=== PATIENT | female | born 1940 | race Caucasian/White ===

== ENCOUNTER 2016-08-27 08:23 | Inpatient (IN) | payer MEDICARE ==
[~2016-08-27] VITALS: Ht 157.5 cm; Wt 76.0 kg
[2016-08-27] MEDS ORDERED: B-COTAB41 PO (11:06)
[2016-08-27] MEDS ORDERED: POLYSOL14 EACH EYE (11:06)
[2016-08-27] MEDS ORDERED: VITA100018 PO (11:06)
[2016-08-27] MEDS ORDERED: FLUTI110I INH (11:06)
[2016-08-27] MEDS ORDERED: PRIL20CA9 PO (11:06)
[2016-08-27] MEDS ORDERED: LORA1TAB12 PO (11:06)
[2016-08-27] MEDS ORDERED: META0.52 PO (11:06)
[2016-08-27] MEDS ORDERED: LATA0.002 EACH EYE (11:06)
[2016-08-27] MEDS ORDERED: METR0.752 TOPICAL (11:06)
[2016-08-27] MEDS ORDERED: HYDR25TA5 PO (11:06)
[2016-08-27] MEDS ORDERED: SERT-129 PO (11:06)
[2016-08-27] MEDS ORDERED: NITR100C4 PO (11:06)
[2016-08-27] MEDS ORDERED: SIMV20TA PO (11:06)
--- NOTE | 2016-09-03 15:26 | MH ---
cc: Celestine RAMIREZ M.D. DATE OF ADMISSION: 09/09/2016 ADMITTING DIAGNOSIS Osteoarthritic degeneration right knee, now being admitted for right total knee arthroplasty. HISTORY OF PRESENT ILLNESS This pleasant 75-year-old female is being admitted today for right total knee arthroplasty due to severe painful osteoarthritic degeneration of her right knee. PAST MEDICAL HISTORY 1. She recently had a UTI for which she is on sulfa and the last culture was less than 75,000 count. 2. Anemia. 3. Anxiety. 4. Arthritis. 5. Asthma. 6. Depression. 7. Sciatica. MEDICATIONS Current medications include: 1. Metamucil. 2. Vitamins. 3. Vitamin-D3. 4. Lorazepam. 5. Sertraline. 6. Omeprazole. 7. Simvastatin. 8. Flovent. 9. Hydrochlorothiazide. 10.Latanoprost. 11.Metronidazole. 12.Nitrofurantoin. 13.Sulfamethoxazole. 14.Trimethoprim. PAST SURGICAL HISTORY 1. Left total knee arthroplasty in the past. 2. Left elbow surgery for a fracture. REVIEW OF SYSTEMS Noncontributory. FAMILY HISTORY Noncontributory. SOCIAL HISTORY She does not smoke or drink. ALLERGIES VANCOMYCIN, WHICH TURNED HER RED THE LAST TIME SHE HAD SURGERY. PHYSICAL EXAMINATION GENERAL: We find a 75-year-old female well-developed, well-nourished, oriented x3, complaining of pain in her right knee. VITAL SIGNS: Blood pressure 124/82, pulse 89 and regular, respirations 20, temperature 98.7, pulse oximetry 98% on room air. HEENT: PERRLA. EOMI. Ears, nose and mouth clear. NECK: Supple. LUNGS: Clear. HEART: Regular rate. ABDOMEN: Soft. Positive bowel sounds. Nontender. EXTREMITIES: The right knee has crepitance on range of motion, -5 of extension to 90 of flexion. She is neurovascularly intact to her toes. IMPRESSION The impression at this time is severe painful osteoarthritic degeneration, right knee. PLAN The plan is admission for right total knee arthroplasty today. She understands the procedure well and was given a prescription for postoperative pain control in the office and plans on going to rehab after surgery. She understands to use Hibiclens scrub and Bactroban preoperatively. J. MD PATSY Mckenna/KB /3:04 PM /3:18 PM
[2016-09-09 06:13] VITALS: BP 145/76; PULSE 86; RESP 18; TEMP 99.2; O2SAT 95
[2016-09-09] MEDS: LACTATED RINGER'S 1000 ML IV SCH (06:15)
[2016-09-09] MEDS ORDERED: INSULIN HUMAN REGULAR 1,000 UNITS/10 ML VIAL SQ PRN (06:30)
[2016-09-09] MEDS ORDERED: METOPROLOL TARTRATE 25 MG TAB PO PRN (06:30)
[2016-09-09] MEDS ORDERED: MIDAZOLAM HCL 5 MG/5 ML VIAL ONE (07:04)
[2016-09-09] MEDS ORDERED: fentaNYL CITRATE 250 MCG/5 ML AMP ONE (07:04)
[2016-09-09] MEDS ORDERED: BUPIVACAINE LIPOSO PF 1.3% INJ 20 ML, BUPIVACAINE PF 0.25% INJ 20 ML in SODIUM CHLORIDE... P-ARTICULR SCH (07:15)
[2016-09-09] MEDS ORDERED: PHENYLEPH/NS 1000 MCG/10 ML SYR IV ONE (07:59)
[2016-09-09] MEDS ORDERED: NEOSTIGMINE 3 MG/3 ML SYR IV ONE (07:59)
[2016-09-09] MEDS ORDERED: PROPOFOL 200 MG/20 ML AMP IV ONE (07:59)
[2016-09-09] MEDS ORDERED: ONDANSETRON HCL 4 MG/2 ML VIAL IV PUSH ONE (08:00)
[2016-09-09] MEDS ORDERED: LACTATED RINGER'S 1000 ML INJ 1,000 ML IV ONE (08:00)
[2016-09-09] MEDS ORDERED: SODIUM CHLORID 0.9% 500 ML IV SCH (08:00)
[2016-09-09] MEDS ORDERED: TRANEXAMIC ACID IV SCH ×2 (08:00→11:00)
[2016-09-09] MEDS ORDERED: SODIUM CHLORIDE 0.9% IV SCH ×2 (08:00→11:00)
[2016-09-09] MEDS ORDERED: ceFAZolin 2 GM PREMIX 50 ML IV SCH (08:00)
[2016-09-09] MEDS: PSYLLIUM FIBER SF/GF 6 GM POWD PKT PO SCH ×2 (08:15→09:00)
[2016-09-09] MEDS ORDERED: diphenhydrAMINE HCL 50 MG/ML VIAL IV PRN (08:15)
[2016-09-09] MEDS ORDERED: ACETAMINOPHEN 325 MG TAB PO PRN (08:15)
[2016-09-09] MEDS ORDERED: Post-op Orders (for Pharmacy) MISC XX ONE (08:15)
[2016-09-09] MEDS ORDERED: NALOXONE HCL 0.4 MG/ML AMP IV PRN ×2 (08:15)
[2016-09-09] MEDS ORDERED: LORazepam 1 MG TAB PO PRN (08:15)
[2016-09-09] MEDS ORDERED: TEMAZEPAM 15 MG CAP PO PRN (08:15)
[2016-09-09] MEDS ORDERED: TRANEXAMIC ACID INJ 0 MG in SODIUM CHLORIDE 0.9% INJ 100 ML IV SCH (08:15)
[2016-09-09] MEDS ORDERED: SODIUM CHLORIDE 0.9% FLUSH 5 ML FLUSH IVF PRN (08:15)
[2016-09-09] MEDS ORDERED: ONDANSETRON HCL 4 MG/2 ML VIAL IVP PRN (08:15)
[2016-09-09] MEDS ORDERED: CPMMACHINE (08:19)
[2016-09-09] MEDS ORDERED: ceFAZolin INJ 1,000 MG VIAL XX ONE (08:40)
[2016-09-09] MEDS: FLUTICASONE PROPIONATE 110 MCG/ACT 12 GM INHALER INH SCH (09:00)
[2016-09-09] MEDS ORDERED: NITROFURANTOIN MONOHYD MACROCR 100 MG CAP PO SCH (09:00)
[2016-09-09] MEDS: PRAVASTATIN SOD 40 MG TAB PO SCH (09:00)
[2016-09-09] MEDS: VITAMIN B COMPLEX/VIT C TAB PO SCH (09:00)
[2016-09-09] MEDS: HYDROCHLOROTHIAZIDE 25 MG TAB PO SCH (09:00)
[2016-09-09] MEDS: PANTOPRAZOLE SOD 20 MG DELAYED RELEASE TAB PO SCH (09:00)
[2016-09-09] MEDS: SERTRALINE HCL 100 MG TAB PO SCH ×2 (09:00→12:02)
[2016-09-09] MEDS: CHOLECALCIFEROL (VIT D3) 1000 UNIT TAB PO SCH (09:00)
--- NOTE | 2016-09-09 09:38 | PD.CONS ---
HPI Service [facility] Hospitalists Consult Requested By Dr. Manny Barney Reason for Consult Medical management Primary Care Physician Eze Romero M.D. Diagnoses: History of Present Illness Mrs. Bender is a pleasant 75 y/o female with Hypertension, diastolic CHF, COPD, GERD and osteoarthritis. She [place] [facility] [place] for a right total knee arthroplasty with Dr. Barney. Pt had a previous left total knee arthroplasty in June 2015. She was started on Bactrim DS on 09/02/16 for an E. coli UTI as an outpt. The [facility] Hospitalist team was consulted to help with medical management. Pt is seen post-operatively. Pt is afebrile and vital signs are stable. Pt is without any specific complaints. Review of Systems Constitutional: DENIES: Fever, Chills Respiratory: DENIES: Cough, Shortness of breath Cardiovascular: DENIES: Chest pain, Palpitations Gastrointestinal: DENIES: Abdominal pain, Nausea, Vomiting Genitourinary: DENIES: Hematuria Musculoskeletal: COMPLAINS OF: Joint pain Integumentary: DENIES: Rash Neurologic: DENIES: Headache Past Family Social History Past Medical History Hypertension Diastolic CHF COPD GERD Chronic constipation Depression Vitamin D deficiency Chronic kidney disease, stage II History of basal cell carcinoma Hyperlipidemia Osteoarthritis Glaucoma Macular degeneration Chronic microcytic anemia Patient is on chronic oral iron therapy Patient follows with Dr. Smith Read Nephrolithiasis Past Surgical History Left total knee arthroplasty in 06/[address] Barney Arthroscopy Knee Complete Colonoscopy Destruction Of Malignant Lesion Dilation And Curettage Duodenoscopy With Biopsy Hand Incision Tendon Sheath Of A Finger Neuroplasty Decompression Median Nerve At Carpal Tunnel Nose Surgery Tonsillectomy Tubal Ligation Reported Medications Nitrofurantoin Monohydrate 100 Mg PO BID (started 08/18/16) and then Bactrim DS ( started 09/02/16) -Metronidazole Topical 0.75 % Cream 1 Applic TOPICAL BID -Latanoprost Opth Drops 0.005% Drops 1 Drop EACH EYE HS -Hydrochlorothiazide 25 Mg PO DAILY -Prilosec 20 Mg PO DAILY -Sertraline 150 Mg PO DAILY -Lorazepam 1 Mg PO HS PRN -Flovent Hfa 12 GM Inh 110 Mcg/Act Inh 2 Puff INH TWICE DAILY -Simvastatin 20 Mg PO HS Vitamin D3 (Cholecalciferol) 1,000 Unit Tab 1,000 Units PO DAILY Vitamin B-Complex (B-Complex Vitamins) 1 Tab 1 Tab PO DAILY Metamucil (Psyllium) 520 Mg Cap 1 Cap PO DIRECTED Artificial Tears Opth Drops (Polyvinyl Alcohol-Povidone Opth Drops) 0.5-0.6% Soln 1-2 Drop EACH EYE PRN PRN Allergies: Coded Allergies: Vancomycin (Verified Allergy, Mild, Generalized Rash, 09/09/16) PATIENT STATED THAT HER FACE GOT RED WHEN SHE TOOK VANCOMYCIN IN PACU Family History Noncontributory Social History Pt with hx of tobacco, quit in 1986 Occasional alcoholic beverage No illicit street drugs Physical Exam Vital Signs Vital Signs Date Time Temp Pulse Resp B/P Pulse Ox O2 Delivery O2 Flow Rate FiO2 09/09/16 06:13 99.2 86 18 145/76 95 Physical Exam GENERAL: This is a well-nourished, well-developed patient, in no apparent distress. HEENT: Atraumatic. Normocephalic. No temporal or scalp tenderness. No scleral icterus. Airway patent. NECK: Trachea midline, supple, nontender. CARDIO: Regular RESP: CTA bilaterally. No wheezes, rales, or rhonchi. ABD: +BS, soft, non-tender, nondistended. EXT: Right knee bandages are c/d/i NEURO: Motor and sensory grossly within normal limits. Normal speech. Laboratory Laboratory Tests Test 09/09/16 06:13 Blood Type A POSITIVE Antibody Screen NEGATIVE Assessment and Plan Problem List: (1) Osteoarthritis of right knee Status: Chronic Plan: - Pt s/p right total knee arthroplasty on 09/09/[address] Barney - Post-op pain control per Ortho - IS - PT - Constipation precautions - DVT prophylaxis with Lovenox 30mg Q12H (2) HTN (hypertension) Status: Chronic Plan: - Home meds continued. - BP stable - Monitor (3) COPD (chronic obstructive pulmonary disease) Status: Chronic Plan: - Duonebs PRN (4) CKD (chronic kidney disease) stage 2, GFR 60-89 ml/min Status: Chronic (5) Depression Status: Acute Plan: - Home meds continued Assessment and Plan Patient examined. Assessment and plan formulated with Yolette Ch PA-C. I agree with the above. Problem Qualifiers (1) Osteoarthritis of right knee: Qualified Code: M17.11 - Primary osteoarthritis of right knee Yolette Ch Sep 09, 2016 09:38 Wilber Blackmon DO Sep 11, 2016 23:18
[2016-09-09] MEDS ORDERED: RESP: ALBUTEROL 2.5 MG/IPRATROPIUM 0.5 MG NEB (PRN) NEB (09:45)
[2016-09-09] MEDS ORDERED: MORPHINE SULFATE 30 MG/30 ML PCA IV SCH (10:00)
[2016-09-09] MEDS ORDERED: DO NOT ADM ANY ANTICOAGULANT DRUGS XX PRN ×3 (11:30→13:15)
[2016-09-09] MEDS: LACTATED RINGER'S 1000 ML INJ 1,000 ML IV SCH ×2 (11:31→20:08)
--- NOTE | 2016-09-09 11:33 | RADRPT ---
EXAM DATE/TIME: 09/09/2016 10:59 [facility] COMPARISON: No previous studies available for comparison. INDICATIONS : Post op right total knee. MEDICAL HISTORY : None. SURGICAL HISTORY : None. ENCOUNTER: Initial ACUITY: 1 day PAIN SCORE: Non-responsive. LOCATION: Right knee FINDINGS: Two view examination of the right knee demonstrates total the arthroplasty. All 3 components are appr opriately positioned without fracture. CONCLUSION: Appropriate postoperative appearance of the right knee status post total arthroplasty. Tyler Car MD on September 09, 2016 at 11:31 Board Certified Radiologist. This report was verified electronically.
[2016-09-09] MEDS: SODIUM CHLORIDE 0.9% FLUSH 5 ML FLUSH IVF SCH ×2 (11:37→21:00)
[2016-09-09] MEDS: SULFAMETHOXAZOLE-TRIMETHOPRIM DS 800-160 MG TAB PO SCH ×2 (12:02→21:15)
[2016-09-09 12:30] VITALS: BP 123/65; PULSE 74; RESP 16; TEMP 97.2; O2SAT 95
[2016-09-09] MEDS ORDERED: ROPIVACAINE 0.5% PF INJ 30 ML VIAL NERV BLOCK ONE (12:34)
[2016-09-09] MEDS ORDERED: ARTIFICIAL TEARS OPTH SOLN 15 ML BTL EACH EYE PRN (13:00)
[2016-09-09] MEDS: PCA - TOTAL MG MORPHINE DELIVERED PER SHIFT SCH ×2 (14:00→21:34)
[2016-09-09] MEDS ORDERED: [UNRECOGNIZED DRUG - OTHER] TOPICAL SCH (14:30)
[2016-09-09 16:00] VITALS: BP 128/60; PULSE 76; RESP 16; TEMP 97.4; O2SAT 96
[2016-09-09 19:45] VITALS: BP 124/58; PULSE 86; RESP 17; TEMP 97.1; O2SAT 96
[2016-09-09 20:30] VITALS: O2SAT 99
[2016-09-09] MEDS: POLYETHYLENE GLYCOL 17 GM PKG PO SCH (21:15)
[2016-09-09] MEDS: LATANOPROST 0.005% OPHT SOLN 2.5 ML BTL EACH EYE SCH (21:16)
[2016-09-09] MEDS: NITROFURANTOIN MONOHYD MACROCR 100 MG CAP PO SCH (21:18)
[2016-09-09] MEDS: MAGNESIUM HYDROXIDE SUSP 30 ML CUP PO PRN (21:22)
[2016-09-10] VITALS (7 sets, daily range): BP systolic 101–136; BP diastolic 53–63; PULSE 82–93; RESP 17–18; TEMP 98.1–100; O2SAT 92–95
[2016-09-10] MEDS: PCA - TOTAL MG MORPHINE DELIVERED PER SHIFT SCH (05:38)
[2016-09-10 06:05] LABS: AUTOMATED NEUTROPHIL # 8.3 TH/MM3 (1.8-7.7); BASOPHIL # 0.1 TH/MM3 (0-0.2); BASOPHIL % 0.5 % (0.0-2.0); EOSINOPHIL # 0.2 TH/MM3 (0-0.4); EOSINOPHIL % 2.2 % (0.0-4.0); HEMATOCRIT 30.4 % (35.0-46.0); HEMO FLAGS DIFF FINAL; LYMPH % 8.3 % (9.0-44.0); LYMPHOCYTE # 0.8 TH/MM3 (1.0-4.8); MEAN CELL VOLUME 82.3 FL (80.0-100.0); MEAN CORPUSCULAR HEMOGLOBIN 27.6 PG (27.0-34.0); MEAN CORPUSCULAR HGB CONC 33.5 % (32.0-36.0); MONO % 6.7 % (0.0-8.0); NEUT % 82.3 % (16.0-70.0); PLATELET COUNT 238 TH/MM3 (150-450); RED BLOOD COUNT 3.69 MIL/MM3 (4.00-5.30); WHITE BLOOD COUNT 10.1 TH/MM3 (4.0-11.0)
[2016-09-10 06:06] LABS: BICARBONATE 29.4 MEQ/L (21.0-32.0); MAGNESIUM 1.9 MG/DL (1.5-2.5); POTASSIUM 3.9 MEQ/L (3.5-5.1)
[2016-09-10] MEDS: LACTATED RINGER'S 1000 ML IV SCH (08:00)
[2016-09-10] MEDS ORDERED: HYDR-3580 PO (08:29)
--- NOTE | 2016-09-10 08:35 | PD.ORT.PN ---
Subjective Subjective Remarks pt fairly comfortable. Some discomfort. Objective Vitals Vital Signs Date Time Temp Pulse Resp B/P Pulse Ox O2 Delivery O2 Flow Rate FiO2 09/10/16 05:38 17 09/10/16 03:25 99.0 93 18 119/53 93 09/10/16 00:30 98.7 84 17 122/59 95 09/09/16 21:39 Nasal Cannula 2.00 09/09/16 21:34 17 09/09/16 20:30 99 Nasal Cannula 2.00 09/09/16 19:45 97.1 86 17 124/58 96 09/09/16 19:11 Room Air 09/09/16 16:00 97.4 76 16 128/60 96 09/09/16 12:30 97.2 74 16 123/65 95 09/09/16 12:00 86 14 110/67 97 Nasal Cannula 2 09/09/16 11:45 98.2 78 13 103/60 96 Nasal Cannula 2 09/09/16 11:30 79 12 114/68 95 Nasal Cannula 2 09/09/16 11:15 82 15 113/62 95 Nasal Cannula 2 09/09/16 11:07 15 09/09/16 11:00 85 16 124/68 95 Nasal Cannula 2 09/09/16 10:47 98.6 101 15 127/74 97 Nasal Cannula 2 I/O 09/09/16 09/09/16 09/09/16 09/10/16 09/10/16 09/10/16 07:00 15:00 23:00 07:00 15:00 23:00 Intake Total 1220 ml 1356 ml 1140 ml Output Total 200 ml Balance 1020 ml 1356 ml 1140 ml Intake Oral 20 ml 480 ml 480 ml IV Total 876 ml 660 ml Other 1200 ml Output Estimated Blood Loss 200 ml # Voids 1 3 # Bowel Movements 0 0 Result Diagram: 09/10/16 0504 09/10/16 0504 Objective Remarks Dressing dry and intact. No calf tenderness. Assessment & Plan Ortho Post Op Day #: 1 Problem List: Assessment and Plan Doing well overall. DC NEWS ASSIGNMENT EDITOR today. OOB, PT, plan to dc Thursday to [facility]. Celestine Barney MD Sep 10, 2016 08:35
[2016-09-10] MEDS: FLUTICASONE PROPIONATE 110 MCG/ACT 12 GM INHALER INH SCH (09:00)
[2016-09-10] MEDS: PSYLLIUM FIBER SF/GF 6 GM POWD PKT PO SCH (09:00)
[2016-09-10] MEDS: POLYETHYLENE GLYCOL 17 GM PKG PO SCH ×2 (09:00→21:00)
[2016-09-10] MEDS: PRAVASTATIN SOD 40 MG TAB PO SCH (09:00)
[2016-09-10] MEDS: LACTATED RINGER'S 1000 ML INJ 1,000 ML IV SCH ×2 (09:15→21:15)
[2016-09-10] MEDS: SULFAMETHOXAZOLE-TRIMETHOPRIM DS 800-160 MG TAB PO SCH ×2 (09:16→21:04)
[2016-09-10] MEDS: HYDROCHLOROTHIAZIDE 25 MG TAB PO SCH (09:16)
[2016-09-10] MEDS: CHOLECALCIFEROL (VIT D3) 1000 UNIT TAB PO SCH (09:16)
[2016-09-10] MEDS: NITROFURANTOIN MONOHYD MACROCR 100 MG CAP PO SCH ×2 (09:16→21:04)
[2016-09-10] MEDS: SERTRALINE HCL 100 MG TAB PO SCH ×2 (09:16→21:02)
[2016-09-10] MEDS: VITAMIN B COMPLEX/VIT C TAB PO SCH (09:17)
[2016-09-10] MEDS: PANTOPRAZOLE SOD 20 MG DELAYED RELEASE TAB PO SCH (09:17)
[2016-09-10] MEDS: ENOXAPARIN SODIUM 30 MG/0.3 ML SYRINGE SQ SCH ×2 (09:19→21:01)
[2016-09-10] MEDS: SODIUM CHLORIDE 0.9% FLUSH 5 ML FLUSH IVF SCH ×2 (09:34→21:04)
[2016-09-10] MEDS: ACETAMINOPHEN/HYDROcodone 325 MG/7.5 MG TAB PO PRN ×2 (16:31→23:18)
[2016-09-10] MEDS: DOCUSATE SODIUM 100 MG CAP PO SCH (21:00)
[2016-09-10] MEDS: LATANOPROST 0.005% OPHT SOLN 2.5 ML BTL EACH EYE SCH (21:01)
[2016-09-10] MEDS: MULTIVITAMINS/MINERALS THERAPEUTIC TAB PO SCH (21:04)
[2016-09-11 00:30] VITALS: BP 108/53; PULSE 85; RESP 17; TEMP 98.7; O2SAT 94
[2016-09-11] MEDS: ACETAMINOPHEN/HYDROcodone 325 MG/7.5 MG TAB PO PRN ×4 (04:58→22:59)
--- NOTE | 2016-09-11 06:31 | MP ---
cc: Celestine BARNEY M.D. DATE OF SURGERY 09/09/2016 PREOPERATIVE DIAGNOSIS Osteoarthritic degeneration right knee. POSTOPERATIVE DIAGNOSIS Osteoarthritic degeneration right knee. SURGERY PERFORMED Right total knee arthroplasty using Consensus components, size 3 femur, 2 tibia, 1 patella with a 12-mm insert and two batches of cobalt blue cement. SURGEON Dr. Barney ASSISTANT ATTORNEY GENERAL Dean Ventura, [facility] ANESTHESIA General intubation and block PROCEDURE After successful induction of anesthesia, the patient is placed on the operating room table in the supine position. The knee is prepped and draped in the usual manner. A tourniquet is inflated at the upper thigh and set to 300 mmHg pressure after exsanguination of the lower extremity. A longitudinal incision is made extending from 3 inches proximal to the superior pole of the patella, across the patella in longitudinal fashion, and down past the insertion of the tibial tubercle into the proximal tibia. The incision is carried down through subcutaneous tissue along the medial aspect of the patella and retinaculum, down through the capsule to expose the knee joint. The patella and patellar tendon are freed up enough to allow the patella to be inverted and retracted off the lateral side of the knee joint. The knee joint is left exposed. Small osteophytes are removed. All soft tissue is removed to allow proper position of the femoral and tibial cutting jig guide. The first femoral jig is then inserted along the distal end of the femur after first measuring to decide whether this is a small, medium, or large component. The notch is then drilled and the tibial cutting guide inserted into the femoral cutting guide, along with the ankle brace to allow for proper measurement of the tibial cutting surface that needed to be resected. Pins are inserted into the tibial cutting jig and femoral cutting jig to hold them in place. An oscillating saw is then used to resect the surface of the tibia. The surface of the tibia is then completely removed using sharp and blunt dissection. The anterior and posterior cuts of the femur are then made as well using an oscillating saw through the cutting guide. All guides are then removed and the varus/valgus angulation cutting guide applied to the femur for proper measurement of the proper amount of valgus. The anterior cutting guide for the femur is then inserted at the anterior femoral cuts made. Next, the first block trial is inserted into the femur to allow for proper condyle drill holes to be made which are then made followed by removal of the bone between the condyles using an oscillating saw as well as the bone removed at the most posterior surface of the condyle. After this, this guide is removed and the chamfer cuts made using the chamfer cutting guide from both anterior and posterior. Next, the femoral trial is then inserted, the tibial surface reflected anterior to expose the tibial surface and a tibial stem guide is inserted after first measuring for a standard, standard plus, large, or large plus surface to be used. After the stem is impacted the trial tibial surface is applied followed by the trial meniscal components. After full range of motion is found with the appropriate length meniscal components varying the patella is prepared by resecting the posterior aspect of the patella using an oscillating saw, inserting a trial. The trial is then removed and the cruciate cutting guide applied using the bur to cut the cruciate cuts. After cruciate cuts are made all trials are removed. The wound is irrigated copiously with antibiotic solution and Water Pik and the actual components inserted into place using Consensus components, size 3 femur, 2 tibia, 1 patella with a 12-mm insert and two batches of cobalt blue cement. After the cement has hardened and the components are found to have full range of motion with no instability, the tourniquet is deflated, total tourniquet time being 8 minutes at 300 mmHg pressure. NOTE: Tourniquet utilized except for cementing. 3 grams of Mely used for extra hemostasis at the end of the case, 120 cc of Exparel used around the knee joint for extra pain control. The wound again is irrigated copiously with antibiotic solution, meticulous hemostasis achieved. Closure of the deep fascia approximated with running #2 Quill, the subcutaneous tissue approximated using interrupted running 3-0 and 4-0 Monocryl sutures, Steri-Strips, sterile dressing and knee immobilizer. No drain utilized. ESTIMATED BLOOD LOSS 200 cc. COUNTS Sponge and suture counts were correct. The patient tolerated the procedure well and left the operating room in satisfactory condition. J. Manny Barney MD JRMaylin/SSB /10:23 AM /6:16 AM
[2016-09-11 06:44] LABS: HEMATOCRIT 27.4 % (35.0-46.0); REVIEW FLAG FINAL
[2016-09-11 07:48] VITALS: BP 117/73; PULSE 78; RESP 18; TEMP 97.8; O2SAT 96
[2016-09-11] MEDS: LACTATED RINGER'S 1000 ML IV SCH (08:00)
[2016-09-11] MEDS: ENOXAPARIN SODIUM 30 MG/0.3 ML SYRINGE SQ SCH ×2 (08:22→20:24)
[2016-09-11] MEDS: PANTOPRAZOLE SOD 20 MG DELAYED RELEASE TAB PO SCH (08:23)
[2016-09-11] MEDS: PRAVASTATIN SOD 40 MG TAB PO SCH (08:23)
[2016-09-11] MEDS: PSYLLIUM FIBER SF/GF 6 GM POWD PKT PO SCH (08:23)
[2016-09-11] MEDS: NITROFURANTOIN MONOHYD MACROCR 100 MG CAP PO SCH ×2 (08:24→20:23)
[2016-09-11] MEDS: MULTIVITAMINS/MINERALS THERAPEUTIC TAB PO SCH ×2 (08:24→20:24)
[2016-09-11] MEDS: VITAMIN B COMPLEX/VIT C TAB PO SCH (08:24)
[2016-09-11] MEDS: DOCUSATE SODIUM 100 MG CAP PO SCH ×2 (08:24→20:23)
[2016-09-11] MEDS: HYDROCHLOROTHIAZIDE 25 MG TAB PO SCH (08:24)
[2016-09-11] MEDS: SULFAMETHOXAZOLE-TRIMETHOPRIM DS 800-160 MG TAB PO SCH ×2 (08:24→20:32)
[2016-09-11] MEDS: SODIUM CHLORIDE 0.9% FLUSH 5 ML FLUSH IVF SCH ×2 (08:25→21:07)
[2016-09-11] MEDS: POLYETHYLENE GLYCOL 17 GM PKG PO SCH ×2 (08:26→20:21)
[2016-09-11] MEDS: FLUTICASONE PROPIONATE 110 MCG/ACT 12 GM INHALER INH SCH (08:27)
[2016-09-11] MEDS: CHOLECALCIFEROL (VIT D3) 1000 UNIT TAB PO SCH (08:29)
[2016-09-11 09:36] VITALS: O2SAT 94
[2016-09-11] MEDS: LACTATED RINGER'S 1000 ML INJ 1,000 ML IV SCH ×2 (10:10→21:07)
[2016-09-11] MEDS ORDERED: BACITRACIN OINT 0.9 GM PKT TOP PRN (10:15)
[2016-09-11 12:00] VITALS: BP 119/55; PULSE 80; RESP 18; TEMP 97.4; O2SAT 95
--- NOTE | 2016-09-11 12:19 | PD.ORT.PN ---
Subjective Subjective Remarks pt fairly comfortable. Some discomfort in knee. Objective Vitals Vital Signs Date Time Temp Pulse Resp B/P Pulse Ox O2 Delivery O2 Flow Rate FiO2 09/11/16 12:00 97.4 80 18 119/55 95 09/11/16 09:36 94 Nasal Cannula 2.00 09/11/16 07:48 97.8 78 18 117/73 96 09/11/16 07:00 Nasal Cannula 2.00 09/11/16 00:30 98.7 85 17 108/53 94 09/10/16 20:45 98.6 86 17 130/63 93 09/10/16 19:50 Nasal Cannula 2.00 09/10/16 18:29 Room Air 09/10/16 17:30 18 09/10/16 16:00 100.0 82 18 136/63 93 I/O 09/10/16 09/10/16 09/10/16 09/11/16 09/11/16 09/11/16 07:00 15:00 23:00 07:00 15:00 23:00 Intake Total 1140 ml 600 ml 720 ml 600 ml Balance 1140 ml 600 ml 720 ml 600 ml Intake Oral 480 ml 600 ml 720 ml 600 ml IV Total 660 ml # Voids 3 3 3 6 # Bowel Movements 0 0 0 0 Result Diagram: 09/11/16 0555 09/10/16 0504 Objective Remarks Dressing dry and intact. No calf tenderness.Sitting up in chair. Assessment & Plan Ortho Post Op Day #: 2 Problem List: Assessment and Plan Doing well overall. OOB, PT, plan to dc Thursday to [facility]. Celestine Barney MD Sep 11, 2016 12:19
[2016-09-11 16:00] VITALS: BP 126/76; PULSE 77; RESP 15; TEMP 98.9; O2SAT 88
[2016-09-11] MEDS: MAGNESIUM HYDROXIDE SUSP 30 ML CUP PO PRN (18:30)
[2016-09-11 19:50] VITALS: BP 115/63; PULSE 92; RESP 18; TEMP 99.5; O2SAT 88
[2016-09-11] MEDS: SERTRALINE HCL 100 MG TAB PO SCH (20:22)
[2016-09-11] MEDS: LATANOPROST 0.005% OPHT SOLN 2.5 ML BTL EACH EYE SCH (20:25)
[2016-09-12] VITALS: BP 115/57; PULSE 93; RESP 18; TEMP 98.9; O2SAT 93
[2016-09-12 07:50] VITALS: O2SAT 93
[2016-09-12 08:00] VITALS: BP 137/60; PULSE 88; RESP 18; TEMP 99.1; O2SAT 96
[2016-09-12] MEDS: LACTATED RINGER'S 1000 ML IV SCH (08:00)
[2016-09-12] MEDS: SULFAMETHOXAZOLE-TRIMETHOPRIM DS 800-160 MG TAB PO SCH (08:33)
[2016-09-12] MEDS: POLYETHYLENE GLYCOL 17 GM PKG PO SCH (08:33)
[2016-09-12] MEDS: ENOXAPARIN SODIUM 30 MG/0.3 ML SYRINGE SQ SCH (08:33)
[2016-09-12] MEDS: PRAVASTATIN SOD 40 MG TAB PO SCH (08:34)
[2016-09-12] MEDS: MULTIVITAMINS/MINERALS THERAPEUTIC TAB PO SCH (08:34)
[2016-09-12] MEDS: PANTOPRAZOLE SOD 20 MG DELAYED RELEASE TAB PO SCH (08:34)
[2016-09-12] MEDS: PSYLLIUM FIBER SF/GF 6 GM POWD PKT PO SCH (08:34)
[2016-09-12] MEDS: HYDROCHLOROTHIAZIDE 25 MG TAB PO SCH (08:35)
[2016-09-12] MEDS: CHOLECALCIFEROL (VIT D3) 1000 UNIT TAB PO SCH (08:35)
[2016-09-12] MEDS: DOCUSATE SODIUM 100 MG CAP PO SCH (08:35)
[2016-09-12] MEDS: VITAMIN B COMPLEX/VIT C TAB PO SCH (08:35)
[2016-09-12] MEDS: NITROFURANTOIN MONOHYD MACROCR 100 MG CAP PO SCH (08:35)
[2016-09-12] MEDS: SODIUM CHLORIDE 0.9% FLUSH 5 ML FLUSH IVF SCH (08:36)
[2016-09-12] MEDS: FLUTICASONE PROPIONATE 110 MCG/ACT 12 GM INHALER INH SCH (08:36)
--- NOTE | 2016-09-12 08:40 | PD.ORT.PN ---
Subjective Subjective Remarks pt fairly comfortable. Some discomfort in knee. Objective Vitals Vital Signs Date Time Temp Pulse Resp B/P Pulse Ox O2 Delivery O2 Flow Rate FiO2 09/12/16 07:50 93 Nasal Cannula 2.00 09/12/16 06:45 Nasal Cannula 2.00 09/12/16 00:00 98.9 93 18 115/57 93 09/11/16 19:50 99.5 92 18 115/63 88 09/11/16 16:00 98.9 77 15 126/76 88 09/11/16 12:00 97.4 80 18 119/55 95 09/11/16 09:36 94 Nasal Cannula 2.00 I/O 09/11/16 09/11/16 09/11/16 09/12/16 09/12/16 09/12/16 07:00 15:00 23:00 07:00 15:00 23:00 Intake Total 600 ml 720 ml 960 ml 480 ml Output Total 2 ml Balance 600 ml 720 ml 958 ml 480 ml Intake Oral 600 ml 720 ml 960 ml 480 ml Output Urine Total 2 ml # Voids 6 4 2 # Bowel Movements 0 0 0 0 Result Diagram: 09/11/16 0555 09/10/16 0504 Objective Remarks Dressing dry and intact. No calf tenderness.Having difficulty getting off nasal 02. Low sats. Assessment & Plan Ortho Post Op Day #: 3 Problem List: Assessment and Plan Doing well overall. OOB, PT, plan to dc to [facility] when ok with medical and O2 sats improved. Celestine Barney MD Sep 12, 2016 08:40
--- NOTE | 2016-09-12 10:20 | RADRPT ---
EXAM DATE/TIME: 09/12/2016 10:08 [facility] COMPARISON: CHEST SINGLE AP, July 05, 2015, 10:43. INDICATIONS : SOB MEDICAL HISTORY : None. SURGICAL HISTORY : None. ENCOUNTER: Subsequent ACUITY: 2 days PAIN SCORE: 0/10 LOCATION: chest FINDINGS: PA and lateral views of the chest demonstrate slight elevation of the right hemidiaphragm, unchanged. Stable linear scarring in the lingula. Lungs otherwise clear. Heart size is normal. Small degenerati ve spur in the dorsal spine. Narrowing of the acromiohumeral intervals bilaterally suggest chronic ro tator cuff injuries. CONCLUSION: 1. Stable left lingular scarring with no acute infiltrate. 2. Reduction of the acromiohumeral interval bilaterally characteristic of chronic rotator cuff injuri es. Tyler Car MD on September 12, 2016 at 10:15 Board Certified Radiologist. This report was verified electronically.
[2016-09-12] MEDS: LACTATED RINGER'S 1000 ML INJ 1,000 ML IV SCH (11:15)
[2016-09-12 12:00] VITALS: BP 123/58; PULSE 83; RESP 19; TEMP 98; O2SAT 95
[2016-09-12 16:00] VITALS: BP 185/72; PULSE 69; RESP 18; TEMP 97; O2SAT 98
[2016-09-12] MEDS ORDERED: IPRASOL INH (16:57)
[2016-09-12] MEDS ORDERED: PRED10 PO (16:57)
[2016-09-12] MEDS ORDERED: methylPREDNISolone SOD SUCC 125 MG/2 ML VIAL IV PUSH ONE (17:00)
--- NOTE | 2016-09-12 17:01 | HHI.PR ---
Subjective Remarks Pt still requiring supplemental O2 at 2L Pt is not on supplemental O2 at home. She is planned for discharge to SNF today Objective Vitals Vital Signs Date Time Temp Pulse Resp B/P Pulse Ox O2 Delivery O2 Flow Rate FiO2 09/12/16 12:00 98.0 83 19 123/58 95 09/12/16 08:00 99.1 88 18 137/60 96 09/12/16 07:50 93 Nasal Cannula 2.00 09/12/16 06:45 Nasal Cannula 2.00 09/12/16 00:00 98.9 93 18 115/57 93 09/11/16 19:50 99.5 92 18 115/63 88 09/11/16 09/11/16 09/12/16 15:00 23:00 07:00 Intake Total 720 ml 960 ml 480 ml Output Total 2 ml Balance 720 ml 958 ml 480 ml Intake Oral 720 ml 960 ml 480 ml Output Urine Total 2 ml # Voids 4 2 # Bowel Movements 0 0 0 Result Diagram: 09/11/16 0555 09/10/16 0504 Other Results Laboratory Tests Test 09/11/16 05:55 Hemoglobin 9.0 GM/DL Hematocrit 27.4 % Imaging Last Impressions Chest X-Ray 09/12/16 0000 Signed Impressions: Service Date/Time: Monday, September 12, 2016 10:08 - CONCLUSION: 1. Stable left lingular scarring with no acute infiltrate. 2. Reduction of the acromiohumeral interval bilaterally characteristic of chronic rotator cuff injuries. Tyler Car MD Knee X-Ray 09/09/16 0815 Signed Impressions: Service Date/Time: Friday, September 09, 2016 10:59 - CONCLUSION: Appropriate postoperative appearance of the right knee status post total arthroplasty. Tyler Car MD Objective Remarks General: NAD, AAOx3 Chest: Diffuse expiratory wheeze Cardiac: Regular Abd: +BS, soft ND/NT Ext: no edema A/P Problem List: (1) Osteoarthritis of right knee Status: Chronic Plan: - Pt s/p right total knee arthroplasty on 09/09/[address] Barney - Post-op pain control per Ortho - IS - PT - Constipation precautions - DVT prophylaxis with Lovenox 30mg Q12H (2) HTN (hypertension) Status: Chronic Plan: - Home meds continued. - BP stable - Monitor (3) COPD (chronic obstructive pulmonary disease) Status: Chronic Plan: - Pt with diffuse wheeze on exam and still requiring supplemental O2, likely having a COPD exacerbation. - Give a dose of Solumedrol prior to discharge. - Taper prednisone 30mg BID x 3 days --> 20mg BID x 3 days --> 10mg BID x 3 days --> 10mg daily x 2 days - Duonebs Q6HWA (4) CKD (chronic kidney disease) stage 2, GFR 60-89 ml/min Status: Chronic (5) Depression Status: Acute Plan: - Home meds continued Assessment and Plan Patient examined. Assessment and plan formulated with Yolette Ch PA-C. I agree with the above. Problem Qualifiers (1) Osteoarthritis of right knee: Qualified Code: M17.11 - Primary osteoarthritis of right knee Yolette Ch Sep 12, 2016 17:01 Wilber Blackmon DO Sep 14, 2016 10:53
[2016-09-12] MEDS ORDERED: HYDR-3580 PO (17:05)
[2016-09-12] MEDS ORDERED: LORA1TAB12 PO (17:05)
--- NOTE | 2016-09-12 17:06 | HHI.DCPOC ---
Discharge Care Plan Diagnosis: (1) Status post total right knee replacement (2) Osteoarthritis of right knee (3) COPD (chronic obstructive pulmonary disease) (4) HTN (hypertension) (5) CKD (chronic kidney disease) stage 2, GFR 60-89 ml/min (6) Depression Goals to Promote Your Health * To prevent worsening of your condition and complications * To maintain your health at the optimal level Directions to Meet Your Goals Take your medications as prescribed Follow your dietary instruction Follow activity as directed Keep your appointments as scheduled Take your immunizations and boosters as scheduled If your symptoms worsen call your PCP, if no PCP go to Urgent Care Center or Emergency Room Smoking is Dangerous to Your Health. Avoid second hand smoke Call the 24-hour hour crisis hotline for domestic abuse at Yolette Ch Sep 12, 2016 17:06 Wilber Blackmon DO Sep 14, 2016 10:53
[2016-09-12] MEDS: ACETAMINOPHEN/HYDROcodone 325 MG/7.5 MG TAB PO PRN (17:20)
--- NOTE | 2016-09-13 06:54 | HHI.DS ---
Discharge Summary Admission Date Sep 09, 2016 at 05:36 Discharge Date: Sep 12, 2016 Admitting Diagnosis Osteoarthritic degeneration right Diagnosis: (1) Status post total right knee replacement Diagnosis: Principal Brief History This is a 75 year old female patient CBC/BMP: 09/11/16 0555 09/10/16 0504 Significant Findings Laboratory Tests Test 09/11/16 05:55 Hemoglobin 9.0 GM/DL (11.6-15.3) Hematocrit 27.4 % (35.0-46.0) PE at Discharge Dressing dry and intact. No calf tenderness.Having difficulty getting off nasal 02. Low sats. Hospital Course Patient underwent a right total knee arthroplasty on day of admission. She received a course of prophylactic IV antibiotics and started on anticoagulation therapy within 23 hours of surgery. She continued to improve began out of bed tolerating food and fluids well and by mouth pain meds. She received medical care for low oxygen saturation rate and was kept on nasal cannula oxygen. She continued to improve receiving daily wound care and physical therapy. She was discharged on third postoperative day in good condition tolerating food and fluids well to [facility] facility for continuation of care and appointment to see Dr. Barney the following week for recheck. Pt Condition on Discharge: Good Discharge Disposition: Discharge to SNF Discharge Instructions Diet Instructions: Heart Healthy Diet Activities You Can Perform: Weight Bearing as Mel, See Additionl Instruction Additional Activity Instruc.: Instructions on weight bearing per Celestine Tristan MD Sep 13, 2016 06:54
== END 2016-09-12 18:46 | DRG 470 ==
LOC: HSDI 09-09 05:36 → N06A 09-09 12:23
PROVIDERS: ADMIT Surgery; ATTEND Surgery
PROC: 3E0T3BZ Introduction of Anesthetic Agent into Peripheral Nerves and Plexi, Percutaneous Approach (ICD-10-PCS; 2016-09-09)
PROC: 0SRC0J9 Replacement of Right Knee Joint with Synthetic Substitute, Cemented, Open Approach (ICD-10-PCS; principal; 2016-09-09 08:03)
DX: M17.11 Unilateral primary osteoarthritis, right knee (principal); I13.0 Hypertensive heart and chronic kidney disease with heart failure and stage 1 through stage 4 chronic kidney disease, or unspecified chronic kidney disease; N18.2 Chronic kidney disease, stage 2 (mild); I50.30 Unspecified diastolic (congestive) heart failure; J44.1 Chronic obstructive pulmonary disease with (acute) exacerbation; J45.909 Unspecified asthma, uncomplicated; Z87.440 Personal history of urinary (tract) infections; F41.9 Anxiety disorder, unspecified; K21.9 Gastro-esophageal reflux disease without esophagitis; K59.09 Other constipation; E55.9 Vitamin D deficiency, unspecified; F32.9 Major depressive disorder, single episode, unspecified; E78.5 Hyperlipidemia, unspecified; H40.9 Unspecified glaucoma; H35.30 Unspecified macular degeneration; D50.9 Iron deficiency anemia, unspecified; Z88.1 Allergy status to other antibiotic agents; Z85.828 Personal history of other malignant neoplasm of skin; Z96.652 Presence of left artificial knee joint; Z87.891 Personal history of nicotine dependence
CPT/HCPCS: 71020; 73560; 80048; 83735; 85014; 85018; 85025; 86850; 86900; 86901; 94150; C1776; C9290; J0690; J1650; J2250; J2270; J2370; J2405; J2710; J2795; J2930; J3010; J7120; L1830

== ENCOUNTER → 2016-08-27 | Outpatient (CLI) | payer MEDICARE ==
[~2016-08-27] MED LIST: B COTAB3 PO; B-COTAB41 PO; CPMMACHINE; FLUTI110I INH; FLUTI220I INH; HYDR-2768 PO; HYDR-3580 PO; HYDR25TA5 PO; IPRASOL INH; KONS520C PO; LATA0.002 EACH EYE; LORA1TAB PO; LORA1TAB12 PO; META0.52 PO; METR0.752 TOPICAL; NITR100C4 PO; OMEP20TA PO; POLYSOL14 EACH EYE; PRED10 PO; PRIL20CA9 PO; SERT-129 PO; SIMV20TA PO; VITA100018 PO; VITATAB25 PO; XALA0.00 EACH EYE; Z.0.COMMODE-3:1; Z.0.CPM; Z.0.WALKERFRONT
[2016-08-27 09:33] LABS: AUTOMATED NEUTROPHIL # 5.5 TH/MM3 (1.8-7.7); BASOPHIL # 0.1 TH/MM3 (0-0.2); BASOPHIL % 0.8 % (0.0-2.0); EOSINOPHIL # 0.5 TH/MM3 (0-0.4); EOSINOPHIL % 6.7 % (0.0-4.0); HEMATOCRIT 37.8 % (35.0-46.0); HEMO FLAGS DIFF FINAL; LYMPH % 15.6 % (9.0-44.0); LYMPHOCYTE # 1.2 TH/MM3 (1.0-4.8); MEAN CELL VOLUME 82.4 FL (80.0-100.0); MEAN CORPUSCULAR HEMOGLOBIN 28.2 PG (27.0-34.0); MEAN CORPUSCULAR HGB CONC 34.3 % (32.0-36.0); MONO % 5.8 % (0.0-8.0); NEUT % 71.1 % (16.0-70.0); PLATELET COUNT 225 TH/MM3 (150-450); RED BLOOD COUNT 4.59 MIL/MM3 (4.00-5.30); RED CELL DISTRIBUTION WIDTH 15.9 % (11.6-17.2); WHITE BLOOD COUNT 7.8 TH/MM3 (4.0-11.0)
[2016-08-27 09:38] LABS: APTT (PATIENT) 27.1 SEC (24.3-30.1); PROTHROMBIN TIME - PATIENT 11.2 SEC (9.8-11.6)
[2016-08-27 10:18] LABS: COMMENT (UR) CATH-CULTURE IND; CULTURE IF INDICATED CATH CULTURE IND; SQUAMOUS EPITHELIAL CELL URINE 3 /hpf (0-5)
[2016-08-27 10:22] LABS: BLOOD, URINE TRACE (NEG); NITRITE,URINE NEG (NEG)
[2016-08-27 10:23] LABS: GLUCOSE,URINE NEG (NEG); KETONE, URINE NEG (NEG)
[2016-08-27 10:24] LABS: URINE COLOR YELLOW (YELLW/STRAW)
[2016-08-27 10:52] LABS: ALKALINE PHOSPHATASE 101 U/L (45-117); ALT (GPT) 14 U/L (10-53); ANION GAP 7 MEQ/L (5-15); AST (GOT) 12 U/L (15-37); BICARBONATE 31.7 MEQ/L (21.0-32.0); BLOOD UREA NITROGEN 10 MG/DL (7-18); CHLORIDE 104 MEQ/L (98-107); GLOMERULAR FILTRATION RATE 71 ML/MIN (>89); GLUCOSE,FASTING 84 MG/DL (74-99); POTASSIUM 3.5 MEQ/L (3.5-5.1); SODIUM (NA) 143 MEQ/L (136-145); TOTAL BILIRUBIN ADULT 0.6 MG/DL (0.2-1.0)
--- NOTE | 2016-08-27 19:39 | EKG ---
Date Performed: 08/27/2016 Time Performed: 08:48:53 PTAGE: 75 years EKG: Sinus rhythm ANTEROSEPTAL MYOCARDIAL INFARCTION, OF INDETERMINATE AGE ABNORMAL ECG Compared to prior tracing no s ignificant change DOCTOR: Coleen Negron Interpretating Date/Time 08/27/2016 19:38:59
== END ==
LOC: CPRE 08:20
PROVIDERS: ATTEND Surgery
DX: Z01.810 Encounter for preprocedural cardiovascular examination (principal); Z01.812 Encounter for preprocedural laboratory examination
CPT/HCPCS: 36415; 80053; 81001; 85025; 85610; 85730; 87077; 87086; 87186; 93005

== ENCOUNTER 2017-05-17 13:29 | Emergency (ER) | payer MEDICARE ==
[~2017-05-17] VITALS: Ht 157.5 cm; Wt 70.0 kg
[~2017-05-17 13:29] MED LIST changes: +ALPR.5 PO; +ARTIDRO EACH EYE; -B COTAB3 PO; +BACT800T5 PO; +CIPR-9 PO; -FLUTI220I INH; -HYDR-2768 PO; -KONS520C PO; -LORA1TAB PO; -LORA1TAB12 PO; -NITR100C4 PO; -OMEP20TA PO; -POLYSOL14 EACH EYE; -PRIL20CA9 PO; +PRIL20TA2 PO; -VITATAB25 PO; -XALA0.00 EACH EYE; -Z.0.COMMODE-3:1; -Z.0.CPM; -Z.0.WALKERFRONT
[2017-05-17 13:36] VITALS: BP 120/62; PULSE 85; RESP 16; TEMP 98.2
[2017-05-17] MEDS ORDERED: TETANUS/DIPHTHERIA TOXOID ADULT 0.5 ML VIAL IM ONE (13:45)
[2017-05-17] MEDS ORDERED: ACETAMINOPHEN/HYDROcodone 325 MG/5 MG TAB PO ONE (14:00)
--- NOTE | 2017-05-17 15:39 | RADRPT ---
EXAM DATE/TIME: 05/17/2017 14:50 [facility] COMPARISON: CT BRAIN W/O CONTRAST, February 02, 2015, 20:37. INDICATIONS : Tripped and fell. Laceration to left face. RADIATION DOSE: 45.45 CTDIvol (mGy) MEDICAL HISTORY : Gastroesophageal reflux disease. SURGICAL HISTORY : Tubal ligation. ENCOUNTER: Initial ACUITY: 1 day PAIN SCALE: 6/10 LOCATION: cranial TECHNIQUE: Multiple contiguous axial images were obtained of the head. Using automated exposure control and adj ustment of the mA and/or kV according to patient size, radiation dose was kept as low as reasonably a chievable to obtain optimal diagnostic quality images. DICOM format image data is available electro nically for review and comparison. FINDINGS: CEREBRUM: Moderate diffuse dural volume loss. The ventricles are normal for degree of atrophy.. No evidence of midline shift, mass lesion, hemorrhage or acute infarction. No extra-axial fluid collections are se en. POSTERIOR FOSSA: The cerebellum and brainstem are intact. The 4th ventricle is midline. The cerebellopontine angle i s unremarkable. EXTRACRANIAL: The visualized portion of the orbits is intact. SKULL: The calvaria is intact. No evidence of skull fracture. CONCLUSION: 1. No acute intracranial abnormality. Ranjan Murrieta MD on May 17, 2017 at 15:37 Board Certified Radiologist. This report was verified electronically.
--- NOTE | 2017-05-17 15:42 | RADRPT ---
EXAM DATE/TIME: 05/17/2017 14:50 [facility] COMPARISON: No previous studies available for comparison. INDICATIONS : Tripped and fell. RADIATION DOSE: 41.73 CTDIvol (mGy) MEDICAL HISTORY : Gastroesophageal reflux disease. SURGICAL HISTORY : Tubal ligation. ENCOUNTER: Initial ACUITY: 1 day PAIN SCALE: 6/10 LOCATION: neck TECHNIQUE: Volumetric scanning of the cervical spine was performed. Multiplanar reconstructions in the sagittal, coronal and oblique axial planes were performed. Using automated exposure control and adjustment o f the mA and/or kV according to patient size, radiation dose was kept as low as reasonably achievable to obtain optimal diagnostic quality images. DICOM format image data is available electronically f or review and comparison. FINDINGS: Vertebral body heights are maintained. Osseous structures are intact without evidence for acute bony fracture. Dens is intact. There is reversal of normal cervical lordosis secondary to advanced degener ative spondylosis of the lower cervical spine most prominently at C5-7 with severe disc space narrowi ng and osteophyte formation. There is mild less than 2 mm anterolisthesis of C3 on C4. Prominent mult i-level facet arthropathy. There is a normal C1-2 relationship. Facets are normally aligned. There is no significant prevertebral soft tissue hematoma. No significant cervical adenopathy or gross mass. Subcentimeter nodule in the left inferior thyroid lobe. Visualized lung apices are clear without pneu mothorax. CONCLUSION: 1. No acute fracture or subluxation. 2. 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 Ranjan Murrieta MD on May 17, 2017 at 15:37 Board Certified Radiologist. This report was verified electronically.
--- NOTE | 2017-05-17 15:47 | RADRPT ---
EXAM DATE/TIME: 05/17/2017 14:50 [facility] COMPARISON: CT BRAIN W/O CONTRAST, May 17, 2017, 14:50. CT BRAIN W/O CONTRAST, February 02, 2015, 20:37. INDICATIONS : Tripped and fell. Laceration to left cheek. RADIATION DOSE: 56.56 CTDIvol (mGy) MEDICAL HISTORY : Gastroesophageal reflux disease. SURGICAL HISTORY : Tubal ligation. ENCOUNTER: Initial ACUITY: 1 day PAIN SCORE: 6/10 LOCATION: facial TECHNIQUE: Volumetric scanning of the facial bones was performed. Using automated exposure control and adjustme nt of the mA and/or kV according to patient size, radiation dose was kept as low as reasonably achiev able to obtain optimal diagnostic quality images. DICOM format image data is available electronicExactTarget y for review and comparison. FINDINGS: ORBITS: The orbital and infraorbital osseous structures are intact. The retroconal structures have a normal configuration. No radiopaque foreign bodies are seen. NASAL BONE: The nasal bone and maxillary spine are intact ZYGOMATIC ARCHES: Symmetric without evidence of fracture. SINUSES: The maxillary, ethmoid and frontal sinuses are intact. No air-fluid levels seen. NASAL CAVITY: The nasal septum is intact and midline. The lacrimal ducts are intact. SOFT TISSUES: Soft tissue laceration and small hematoma in the left frontal superior periorbital region. There is a ir density lateral to the left lateral maxillary wall. INTRACRANIAL: No intracranial air seen. CRIBIFORM PLATE: Grossly intact. CONCLUSION: 1. Air is noted along the lateral left maxillary wall without definitive fracture or fluid within the maxillary sinus. No associated soft tissue inflammatory changes or fluid collections. Findings may r eflect a small occult maxillary wall fracture. 2. Left superior periorbital soft tissue scalp laceration/hematoma. Ranjan Murrieta MD on May 17, 2017 at 15:40 Board Certified Radiologist. This report was verified electronically.
[2017-05-17 15:49] VITALS: BP 148/65; PULSE 74; RESP 18; O2SAT 96
[2017-05-17 15:52] VITALS: RESP 18
[2017-05-17] MEDS ORDERED: LIDOCAINE HCL 1% 50 ML VIAL INFIL ONE (16:15)
--- NOTE | 2017-05-17 16:56 | PD ---
HPI Chief Complaint: Fall Time Seen by Provider: 13:45 Travel History International Travel<30 days: No Contact w/Intl Traveler<30days: No Traveled to known affect area: No History of Present Illness HPI This is a 76-year-old female who presents to the emergency department having fallen and hit her head when she reached over to hot die picker a lin. She is reporting pain on the left side of her face, constant, moderate severity, achy associated with a laceration on her left hand the laceration over her left knee. She denies loss of consciousness. She doesn't take any blood thinners PFSH Past Medical History Arthritis: No Asthma: Yes Autoimmune Disease: No Heart Rhythm Problems: No Cancer: No Cardiovascular Problems: No High Cholesterol: No Chemotherapy: No Chest Pain: No Congestive Heart Failure: No COPD: Yes Diabetes: No Endocrine: No GERD: Yes Glaucoma: Yes Genitourinary: No Hepatitis: No Hiatal Hernia: No Hypertension: No Immune Disorder: No Kidney Stones: No Musculoskeletal: Yes (ARTHRITIS) Neurologic: No Psychiatric: No Reproductive: No Respiratory: Yes (ASTHMA) Radiation Therapy: No Renal Failure: No Sleep Apnea: No Thyroid Disease: No Ulcer: No Tetanus Vaccination: Unknown Past Surgical History Abdominal Surgery: No AICD: No Arteriovenous Shunt: No Body Medical Devices: LEFT ELBOW PLATES AND PINS Cardiac Surgery: No Ear Surgery: No Endocrine Surgery: No Eye Surgery: No Genitourinary Surgery: No Joint Replacement: Yes (LEFT KNEE) Oral Surgery: Yes (DENTAL) Pacemaker: No Thoracic Surgery: No Other Surgery: Yes Social History Alcohol Use: Yes (WINE 2 X MONTH) Tobacco Use: No (QUIT 08/1986) Substance Use: No Allergies-Medications (Allergen,Severity, Reaction): Coded Allergies: vancomycin (Unverified Allergy, Mild, Generalized Rash, 05/17/17) PATIENT STATED THAT HER FACE GOT RED WHEN SHE TOOK VANCOMYCIN IN PACU Reported Meds & Prescriptions Reported Meds & Active Scripts Active Bactrim DS (Sulfamethoxazole-Trimethoprim) 800-160 Mg Tab 1 Tab PO BID Cipro (Ciprofloxacin HCl) 500 Mg Tab 500 Mg PO BID Prednisone 10 Mg Tab 10 Mg PO DIRECTED 11 Days Take 30mg BID x 3 day, then decrease to 20mg BID x 3 days, then decrease to 10mg BID x 3 days, then decrease to 10mg once daily x 2 days then stop Duoneb (Ipratropium-Albuterol Neb) 0.5-2.5 Mg/3 Ml Neb 1 Nebule INH Q6HR WHILE AWAKE NEB Hydrocodone-Acetaminophen 7.5-325 mg Tab 1 Tab PO Q4H PRN CPM-Continuous Passive Motion Machine 1 Ea Device 1 Ea .ROUTE DIRECTED Reported Xanax (Alprazolam) 0.5 Mg Tab 0.5 Mg PO DAILY@0600 PRN Artificial Tears Opth Drops (Propylene Glycol-Glycerin Opth Drops) 1-0.3% Drops 1-2 Drop EACH EYE PRN PRN Prilosec (Omeprazole Magnesium) 20 Mg Tab 20 Mg PO DAILY Metronidazole Topical 0.75 % Cream 1 Applic TOPICAL BID Latanoprost Opth Drops (Latanoprost) 0.005% Drops 1 Drop EACH EYE HS Refrigerate until opened. Hydrochlorothiazide 25 Mg Tab 25 Mg PO DAILY Flovent Hfa 12 GM Inh (Fluticasone Propionate) 110 Mcg/Act Inh 2 Puff INH BID Simvastatin 20 Mg Tab 20 Mg PO HS Sertraline (Sertraline HCl) 100 Mg Tab 150 Mg PO DAILY Vitamin D3 (Cholecalciferol) 1,000 Unit Tab 1,000 Units PO DAILY Vitamin B-Complex (B-Complex Vitamins) 1 Tab 1 Tab PO DAILY Metamucil (Psyllium) 520 Mg Cap 1 Cap PO DIRECTED Review of Systems Except as stated in HPI: all other systems reviewed are Neg Physical Exam Narrative GENERAL:Well appearing, no acute distress SKIN: 8 x 5 cm skin tear with avulsion on the left forearm, small tissue avulsion over the left eyebrow, 3 cm laceration at the base of the left fifth digit on the palmar surface, stellate 2 x 3 cm laceration over the left patella HEAD: Atraumatic. Normocephalic. EYES: Pupils equal and round. No injection or drainage. ENT: Ecchymoses over the left inferior orbit NECK: Trachea midline. CARDIOVASCULAR: Regular rate and rhythm. No murmur appreciated. RESPIRATORY: Clear to auscultation. Breath sounds equal bilaterally. GASTROINTESTINAL: Abdomen soft, non-tender, nondistended. MUSCULOSKELETAL: No obvious deformities. NEUROLOGICAL: Awake and alert. No obvious cranial nerve deficits. Moving all extremities. PSYCHIATRIC: Appropriate mood and affect; insight and judgment normal. Data Data Last Documented VS Vital Signs Date Time Temp Pulse Resp B/P (MAP) Pulse Ox O2 Delivery O2 Flow Rate FiO2 05/17/17 15:52 18 05/17/17 15:49 74 148/65 (92) 96 Room Air 05/17/17 13:[address] Brain W/O Iv Contrast(Rout) (05/17/17 ) Ct Facial Bones W/O Iv Cont (05/17/17 ) ^ Insert Iv (05/17/17 13:45) Ct Cerv Spine W/O Contrast (05/17/17 ) Tetanus/Diphtheria Tox Adult (Tetanus/Di (05/17/17 13:45) Acetamin-Hydrocod 325-5 Mg ([place] 5-325 (05/17/17 14:00) Lidocaine 1% Inj (50 Ml) (Xylocaine 1% I (05/17/17 16:15) MDM Medical Decision Making Medical Screen Exam Complete: Yes Emergency Medical Condition: Yes Interpretation(s) Afebrile, no tachycardia, normotensive Last [address] 05/17/17 0000 Signed Impressions: Service Date/Time: Wednesday, May 17, 2017 14:50 - CONCLUSION: 1. Air is noted along the lateral left maxillary wall without definitive fracture or fluid within the maxillary sinus. No associated soft tissue inflammatory changes or fluid collections. Findings may reflect a small occult maxillary wall fracture. 2. Left superior periorbital soft tissue scalp laceration/ hematoma. Ranjan Murrieta MD Head CT 05/17/17 0000 Signed Impressions: Service Date/Time: Wednesday, May 17, 2017 14:50 - CONCLUSION: 1. No acute intracranial abnormality. Ranjan Murrieta MD Cervical Spine CT 05/17/17 0000 Signed Impressions: Service Date/Time: Wednesday, May 17, 2017 14:50 - CONCLUSION: 1. No acute fracture or subluxation. 2. 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 Ranjan Murrieta MD Differential Diagnosis Intracranial hemorrhage, cervical spine fracture, orbital floor fracture Narrative Course This is a 76-year-old female who presents to the emergency department having had a fall. She has significant bruising on the left side of her face. She also has several lacerations. Lacerations were irrigated and wound care was provided. Laceration on the left hand and left knee were repaired. CT demonstrates some air adjacent to the maxilla on the left suggestive of an occult fracture. Patient was referred as an outpatient to facial surgery. Otherwise I think patient safely can be discharged home. Diagnosis Primary Impression: Maxillary fracture Qualified Codes: S02.40DA - Maxillary fracture, left side, initial encounter for closed fracture Additional Impressions: Laceration of knee Qualified Codes: S81.012A - Laceration without foreign body, left knee, initial encounter Laceration of palm Qualified Codes: S61.412A - Laceration without foreign body of left hand, initial encounter Referrals: Roberto Evans DMD Patient Instructions: General Instructions Additional Instructions: If you develop fevers, redness, swelling, or discharge from your wound return to the emergency room. Keep your wound dry for 24 hours. After that time, wash gently with warm soap and water. Do not use peroxide. Do not soak in baths or go swimming. Have your sutures removed in 10-14 days. Follow up with Dr. Evans in one week Med/Other Pt SpecificInfo: Prescription(s) given Scripts Tramadol (Tramadol) 50 Mg Tab 50 MG PO Q6H Y for PAIN, #10 TAB 0 Refills Prov: Tarsha Singh MD 05/17/17 Disposition: 01 DISCHARGE HOME Condition: Stable Tarsha Singh MD May 17, 2017 16:56
[2017-05-17] MEDS ORDERED: TRAM50TA PO (17:07)
--- NOTE | 2017-05-17 17:23 | PD ---
Physical Exam Date Seen by Provider: May 17, 2017 Time Seen by Provider: 17:20 Narrative I was asked by Dr. Singh to repair laceration to the patient's forehead, left hand, left knee. Please see her documentation for full history and physical. Data Data Last Documented VS Vital Signs Date Time Temp Pulse Resp B/P (MAP) Pulse Ox O2 Delivery O2 Flow Rate FiO2 05/17/17 15:52 18 05/17/17 15:49 74 148/65 (92) 96 Room Air 05/17/17 13:[address] Brain W/O Iv Contrast(Rout) (05/17/17 ) Ct Facial Bones W/O Iv Cont (05/17/17 ) ^ Insert Iv (05/17/17 13:45) Ct Cerv Spine W/O Contrast (05/17/17 ) Tetanus/Diphtheria Tox Adult (Tetanus/Di (05/17/17 13:45) Acetamin-Hydrocod 325-5 Mg ([place] 5-325 (05/17/17 14:00) Lidocaine 1% Inj (50 Ml) (Xylocaine 1% I (05/17/17 16:15) Ed Discharge Order (05/17/17 17:08) MDM Supervised Visit with [facility]: No Procedures Procedure Narrative LACERATION LOCATION: Left forehead LENGTH: 2 cm NUMBER OF STITCHES/THUY: 2 Vicryl 5-0 figure 8 sutures, 3 Prolene 5-0 simple interrupted sutures REPAIR: The area of the laceration was prepped with Betadine and sterilely draped. The laceration was infiltrated with 1% lidocaine. The wound was copiously irrigated and explored without evidence of foreign body, tendon injury or neurovascular injury. The wound was closed using 5-0 Vicryl and 5-0 Prolene. This was a 2 layer repair. A sterile dressing was applied. The patient was advised to keep the dressing clean and dry. Patient tolerated the procedure well. LACERATION LOCATION: Left medial hand LENGTH: 3 cm NUMBER OF STITCHES/THUY: 4 simple interrupted sutures, one horizontal mattress suture REPAIR: The area of the laceration was prepped with Betadine and sterilely draped. The laceration was infiltrated with 1% lidocaine. The wound was copiously irrigated and explored without evidence of foreign body, tendon injury or neurovascular injury. The wound was closed using 4-0 Prolene. This was a single layer repair. A sterile dressing was applied. The patient was advised to keep the dressing clean and dry. Patient tolerated the procedure well. LACERATION LOCATION: Left knee LENGTH: 4 cm NUMBER OF STITCHES/THUY: One vertical mattress suture, 6 simple interrupted sutures REPAIR: The area of the laceration was prepped with Betadine and sterilely draped. The laceration was infiltrated with 1% lidocaine. The wound was copiously irrigated and explored without evidence of foreign body, tendon injury or neurovascular injury. The wound was closed using 3-0 Prolene. This was a single layer repair. A sterile dressing was applied. The patient was advised to keep the dressing clean and dry. Patient tolerated the procedure well. Diagnosis Primary Impression: Maxillary fracture Qualified Codes: S02.40DA - Maxillary fracture, left side, initial encounter for closed fracture Additional Impressions: Laceration of palm Qualified Codes: S61.412A - Laceration without foreign body of left hand, initial encounter Laceration of knee Qualified Codes: S81.012A - Laceration without foreign body, left knee, initial encounter Referrals: Roberto Evans DMD Patient Instructions: General Instructions Additional Instruction: If you develop fevers, redness, swelling, or discharge from your wound return to the emergency room. Keep your wound dry for 24 hours. After that time, wash gently with warm soap and water. Do not use peroxide. Do not soak in baths or go swimming. Have your sutures removed in 10-14 days. Follow up with Dr. Evans in one week Scripts Tramadol (Tramadol) 50 Mg Tab 50 MG PO Q6H Y for PAIN, #10 TAB 0 Refills Prov: Tarsha Singh MD 05/17/17 Disposition: 01 DISCHARGE HOME Condition: Stable Teri Waterman TRE May 17, 2017 17:23
== END 2017-05-17 17:46 | disposition home or self-care (01) ==
LOC: NEPC 13:29
DX: S02.40DA Maxillary fracture, left side, initial encounter for closed fracture (principal); S61.412A Laceration without foreign body of left hand, initial encounter; S81.012A Laceration without foreign body, left knee, initial encounter; S01.81XA Laceration without foreign body of other part of head, initial encounter; M47.9 Spondylosis, unspecified; J44.9 Chronic obstructive pulmonary disease, unspecified; K21.9 Gastro-esophageal reflux disease without esophagitis; W22.8XXA Striking against or struck by other objects, initial encounter; Z23 Encounter for immunization
CPT/HCPCS: 12002; 12051; 70450; 70486; 72125; 90714